=== PATIENT | female | born 1995 | race Caucasian/White ===

== ENCOUNTER 2017-07-02 22:59 | Emergency (ER) | payer BC ==
[2017-07-02] MEDS ORDERED: Acetaminophen/HYDROcodone 325-5 MG Tab PO ONE (23:10)
[2017-07-02] MEDS ORDERED: Penicillin V Potassium 250 MG Tab PO ONE (23:10)
[2017-07-02 23:11] VITALS: BP 134/83
--- NOTE | 2017-07-02 23:19 | EDM.PDOC ---
ED HPI GENERAL MEDICAL PROBLEM - General Chief Complaint: General Stated Complaint: TOOTH PAIN Time Seen by Provider: 07/02/17 23:05 Source of Information: Reports: Patient History Limitations: Reports: No Limitations - History of Present Illness INITIAL COMMENTS - FREE TEXT/NARRATIVE: 22 yo female with bad teeth presents with a toothache. Pain began a few days ago , got worse this morning, then eased off again until tonight. Has not yet called a dentist. No fever. Took OTC analgesia without relief. 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, NSAIDS Tooth/Teeth Pain Score (Numeric/FACES): 8 - Related Data Allergies Allergy/AdvReac Type Severity Reaction Status Date / Time No Known Allergies Allergy Verified 07/02/17 23:05 Home Meds: Home Meds Insulin Aspart [NovoLOG] 20 units SUBCUT TID 11/23/14 [History] Insulin Glarg,Human.Rec.Analog [Lantus] 50 units SUBCUT BEDTIME 11/23/14 [ History] Acetaminophen [Tylenol] 650 mg PO Q6HR PRN 03/25/15 [History] Ibuprofen [Advil] 600 mg PO Q6HR PRN 03/25/15 [History] Acetaminophen/HYDROcodone [[place] 325-5 MG] 1 - 2 tab PO Q6H PRN #14 tab [Rx] Penicillin V Potassium [IJD: Penicillin V Potassium] 500 mg PO .EVERY 6 HOURS # 30 tab 07/02/17 [Rx] Past Medical History - Past Health History Medical/Surgical History: Denies Medical/Surgical History [employer]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: Endocrine/Metabolic History: Reports: Diabetes, Type I - Past Surgical History Female Surgical History: Reports: Section Social & Family History - Tobacco Use Smoking Status *Q: Never Smoker Second Hand Smoke Exposure: No - Caffeine Use Caffeine Use: Reports: None - Alcohol Use Days Per Week of Alcohol Use: 0 - Recreational Drug Use Recreational Drug Use: No - Living Situation & Occupation Living situation: Reports: Occupation: Unemployed ED ROS GENERAL - Review of Systems Review Of Systems: See Below Constitutional: Reports: No Symptoms HEENT: Reports: Dental Pain Respiratory: Reports: No Symptoms Cardiovascular: Reports: No Symptoms GI/Abdominal: Reports: No Symptoms Skin: Reports: No Symptoms Neurological: Reports: No Symptoms ED EXAM, GENERAL - Physical Exam Exam: See Below Exam Limited By: No Limitations General Appearance: Alert, WD/WN, No Apparent Distress Eye Exam: Bilateral Eye: Normal Inspection Ears: Normal External Exam, Normal Canal, Hearing Grossly Normal Ear Exam: Bilateral Ear: Auricle Normal, Canal Normal Nose: Normal Inspection, Normal Mucosa Throat/Mouth: Normal Inspection, Normal Lips, Normal Oropharynx, Normal Voice, Other (painful tooth is a molar on the R mandible. This tooth is decay nearly to the gumline. Many other teeth are nearly this bad, very poor oral hygiene noted. ). No: Normal Teeth Respiratory/Chest: No Respiratory Distress, Lungs Clear, Normal Breath Sounds, No Accessory Muscle Use Course - Vital Signs Text/Narrative:: Sent home with take home packs of Pen VK and [place] as well as Rx for both. [place] Rx is for #14. Pen VK Rx is for 500 mg qid #30. Last Recorded V/S: Last Vital Signs Temp 36.7 C 07/02/17 23:08 Pulse 100 07/02/17 23:08 Resp 20 07/02/17 23:08 BP 134/83 07/02/17 23:08 Pulse Ox 98 07/02/17 23:08 Departure - Departure Time of Disposition: 23:19 Disposition: Home, Self-Care 01 Condition: Fair Clinical Impression: Pain due to dental caries - Discharge Information Prescriptions: Acetaminophen/HYDROcodone [[place] 325-5 MG] 1 - 2 tab PO Q6H PRN #14 tab PRN Reason: Pain Penicillin V Potassium [IJD: Penicillin V Potassium] 500 mg PO .EVERY 6 HOURS # 30 tab Referrals: Cal Ordonez MD [Primary Care Provider] - Forms: ED Department Discharge Additional Instructions: Take ibuprofen 400 mg every 6 hrs with food for pain relief. Take Penicillin every 6 hrs until gone. See your dentist yenny. Take acetaminophen or [place] for added relief as needed. If you can't get in to see your dentist in a timely manner, then follow up with your family doctor.
== END 2017-07-02 23:18 | disposition home or self-care (01) ==
LOC: FB.ED 22:59
DX: K02.9 Dental caries, unspecified (principal); E10.9 Type 1 diabetes mellitus without complications
CPT/HCPCS: 99283; A9270

== ENCOUNTER 2018-04-16 21:38 | Emergency (ER) | payer BC ==
[2018-04-16 23:38] VITALS: BP 124/88
== END 2018-04-16 23:10 | disposition left against medical advice (07) ==
LOC: FB.ED 21:38
DX: Z53.21 Procedure and treatment not carried out due to patient leaving prior to being seen by health care provider (principal)
CPT/HCPCS: 99282

== ENCOUNTER 2021-03-21 20:57 | Emergency (ER) | payer OTHER ==
--- NOTE | 2021-03-21 21:28 | EDM.PDOC ---
ED HPI GENERAL MEDICAL PROBLEM - General Stated Complaint: COVID SYMPTOMS Time Seen by Provider: 03/21/21 21:00 Source of Information: Reports: Patient History Limitations: Reports: No Limitations - History of Present Illness INITIAL COMMENTS - FREE TEXT/NARRATIVE: Patient presented to the ED because of cough, sore throat. She was exposed to her cousin who tested positive with Covid today. 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: Endocrine/Metabolic History: Reports: Diabetes, Type I - Past Surgical History GI Surgical History: Reports: Appendectomy Female Surgical History: Reports: Section Social & Family History - Family History Family Medical History: No Pertinent Family History - Caffeine Use Caffeine Use: Reports: Soda - Living Situation & Occupation Living situation: Reports: Occupation: Unemployed ED ROS GENERAL - Review of Systems Review Of Systems: See Below Constitutional: Reports: No Symptoms HEENT: Reports: No Symptoms Respiratory: Reports: Cough Cardiovascular: Reports: No Symptoms Endocrine: Reports: No Symptoms GI/Abdominal: Reports: No Symptoms : Reports: No Symptoms Musculoskeletal: Reports: No Symptoms Skin: Reports: No Symptoms Neurological: Reports: No Symptoms Psychiatric: Reports: No Symptoms ED EXAM, GENERAL - Physical Exam Exam: See Below Exam Limited By: No Limitations General Appearance: Alert, No Apparent Distress Ears: Normal External Exam, Normal Canal, Hearing Grossly Normal Nose: Normal Inspection, Normal Mucosa, No Blood Throat/Mouth: Normal Inspection, Normal Lips, Normal Teeth Head: Atraumatic, Normocephalic Neck: Normal Inspection, Supple, Non-Tender, Full Range of Motion Respiratory/Chest: No Respiratory Distress, Lungs Clear, Normal Breath Sounds, No Accessory Muscle Use Cardiovascular: Normal Peripheral Pulses, Regular Rate, Rhythm, No Edema, No Gallop, No JVD, No Murmur, No Rub GI/Abdominal: Normal Bowel Sounds, Soft, Non-Tender, No Organomegaly, No Distention, No Abnormal Bruit, No Mass, Pelvis Stable Back Exam: Normal Inspection, Full Range of Motion Extremities: Normal Inspection, Normal Range of Motion, Non-Tender, No Pedal Edema, Normal Capillary Refill Neurological: Alert, Oriented, CN II-XII Intact, Normal Cognition, Normal Gait Course - Vital Signs Text/Narrative:: Covid test-pending Last Recorded V/S: Last Vital Signs Temp 36.2 C 03/21/21 21:00 Pulse 105 H 03/21/21 21:00 Resp 16 03/21/21 21:00 BP 154/87 H 03/21/21 21:00 Pulse Ox 99 03/21/21 21:00 - Orders/Labs/Meds Orders: Active Orders 24 hr Category Date Time Status CORONAVIRUS (COVID19) [facility] Routine Lab 03/21/21 21:30 Received Departure - Departure Time of Disposition: 21:50 Disposition: Home, Self-Care 01 Condition: Good Clinical Impression: Exposure to COVID-19 virus - Discharge Information Instructions: 3 [place] Steps to Take While Waiting for Your COVID-19 Test Result - CDC Referrals: Cal Ordonez MD [Primary Care Provider] - Forms: ED Department Discharge Additional Instructions: Please read discharge instructions on Covid exposure and testing while waiting for your result We will call you as soon as we get the result - My Orders Last 24 Hours: My Active Orders 03/21/21 21:30 CORONAVIRUS (COVID19) [facility] Routine - Assessment/Plan Last 24 Hours: My Active Orders 03/21/21 21:30 CORONAVIRUS (COVID19) [facility] Routine
[2021-03-21 21:54] VITALS: BP 154/87; PULSE 105
[2021-03-23 18:42] LABS: CORNONAVIRUS (COVID19) CSH-NRL Negative (Negative)
== END 2021-03-21 21:27 | disposition home or self-care (01) ==
LOC: FB.ED 20:57
DX: Z20.822 Contact with and (suspected) exposure to COVID-19 (principal); E10.9 Type 1 diabetes mellitus without complications
CPT/HCPCS: 99283; U0003

== ENCOUNTER 2024-04-08 21:43 | Emergency (ER) | payer OTHER ==
[2024-04-08 22:24] LABS: HEMOGLOBIN 11.1 g/dL (11.4-15.5)
[2024-04-08 22:27] LABS: BASOPHILS ABSOLUTE AUTO 0.1 x10-3/uL (0.0-0.1); BASOPHILS PERCENT AUTO 1.6 % (0.2-1.5); EOSINOPHILS ABSOLUTE AUTO 0.3 x10-3/uL (0.0-0.8); HEMATOCRIT 34.4 % (34.2-48.2); LYMPHOCYTES ABSOLUTE AUTO 1.5 x10-3/uL (1.0-4.4); LYMPHOCYTES PERCENT AUTO 17.1 % (18.4-52.1); MEAN CORPUSCULAR HEMOGLOBIN 28.7 pg (23.9-33.9); MEAN CORPUSCULAR HGB CONC 32.3 g/dL (31.9-34.8); MEAN CORPUSCULAR VOLUME 88.8 fL (76.7-100.5); MONOCYTES ABSOLUTE AUTO 0.3 x10-3/uL (0.3-1.0); MONOCYTES PERCENT AUTO 3.7 % (4.4-15.7); NEUTROPHILS ABSOLUTE AUTO 6.6 x10-3/uL (1.5-6.3); NEUTROPHILS PERCENT AUTO 74.6 % (30.8-76.2); PLATELET COUNT,PLT 420 x10(3)uL (151-488); RED BLOOD CELL COUNT 3.88 x10(6)uL (3.60-5.20); WHITE BLOOD CELL COUNT,WBC 8.9 x10-3/uL (3.0-10.3)
[2024-04-08 22:33] LABS: A/G RATIO 0.8; ALANINE AMINOTRANSFERASE,ALT 33 U/L (12-36); ALBUMIN 3.7 g/dL (3.5-5.2); ALKALINE PHOSPHATASE 148 IU/L (56-112); ASPARTATE AMNIOTRANSFERASE,AST 30 IU/L (5-25); BILIRUBIN TOTAL 0.5 mg/dL (0.1-1.3); BLOOD UREA NITROGEN,BUN 25 mg/dL (7-18); CALCIUM 9.5 mg/dL (8.6-10.2); CARBON DIOXIDE,CO2 26 mmol/L (21-32); CHLORIDE,CL 95 mmol/L (100-110); ESTIMATED GFR 9 mL/min (>60); GLUCOSE RANDOM 225 mg/dL (80-116); POTASSIUM,K 5.8 mmol/L (3.5-5.3); PROTEIN TOTAL,TP 8.5 g/dL (6.0-8.0); SODIUM,NA 133 mmol/L (135-145)
[2024-04-08] MEDS: Ondansetron 4 MG/2 ML SDV IVPUSH ONE (22:34)
[2024-04-08] MEDS: Labetalol 20 MG/4 ML Syringe IVPUSH ONE (22:39)
[2024-04-08 22:40] LABS: TROPONIN I 19.2 pg/mL (4.0-60.3)
[2024-04-08 22:44] LABS: CREATININE 6.3 mg/dL (0.55-1.02); PRO B-TYPE NATRIUR PEPT,BNPPRO > 35000 pg/mL (<=125)
[2024-04-08] MEDS: hydrALAZINE 20 MG/ML SDV IVPUSH ONE (23:23)
[2024-04-08] MEDS: Prochlorperazine 10 MG/2 ML SDV IVPUSH ONE (23:23)
[2024-04-08] MEDS: amLODIPine 10 MG Tab PO STA (23:23)
[2024-04-09 00:11] VITALS: BP 209/102; PULSE 84
== END 2024-04-09 00:47 | disposition home or self-care (01) ==
LOC: FB.ED 21:43
DX: I16.9 Hypertensive crisis, unspecified (principal); E10.22 Type 1 diabetes mellitus with diabetic chronic kidney disease; N18.6 End stage renal disease; E87.5 Hyperkalemia; Z99.2 Dependence on renal dialysis; Z79.4 Long term (current) use of insulin; Z90.49 Acquired absence of other specified parts of digestive tract
CPT/HCPCS: 36415; 71045; 80053; 83880; 84484; 85025; 85379; 93005; 93010; 96374; 96375; 99284; 99285-25; A9270-GY; J0360; J0780; J1920; J2405

== ENCOUNTER 2024-05-27 20:32 | Emergency (ER) | payer OTHER ==
[2024-05-27] MEDS: Prochlorperazine 10 MG/2 ML SDV IM ONE (21:23)
[2024-05-27] MEDS: diphenhydrAMINE 50 MG/ML SDV IM ONE (21:23)
[2024-05-27] MEDS: LORazepam 1 MG Tab PO ONE (21:24)
[2024-05-27] MEDS: LORazepam 2 MG/ML SDV IM ONE (21:30)
[2024-05-27 22:34] VITALS: BP 164/76; PULSE 89
== END 2024-05-27 22:10 | disposition home or self-care (01) ==
LOC: FB.ED 20:32
DX: I13.2 Hypertensive heart and chronic kidney disease with heart failure and with stage 5 chronic kidney disease, or end stage renal disease (principal); I50.9 Heart failure, unspecified; N18.6 End stage renal disease; E10.22 Type 1 diabetes mellitus with diabetic chronic kidney disease; Z88.8 Allergy status to other drugs, medicaments and biological substances; Z79.4 Long term (current) use of insulin; Z79.82 Long term (current) use of aspirin; Z79.899 Other long term (current) drug therapy; Z99.2 Dependence on renal dialysis; Z86.16 Personal history of COVID-19
CPT/HCPCS: 96372; 99283; J0780; J2060

== ENCOUNTER 2024-07-30 17:50 | Emergency (ER) | payer OTHER ==
[2024-07-30] MEDS ORDERED: Prochlorperazine 5 MG Tab PO ONE (17:51)
[2024-07-30 18:18] VITALS: BP 145/92; PULSE 106
[2024-07-30] MEDS: traMADol 50 MG Tab PO ONE (18:54)
[2024-07-30] MEDS: Prochlorperazine 10 MG/2 ML SDV IM ONE (18:54)
[2024-07-30 19:12] LABS: HEMOGLOBIN 10.4 g/dL (11.4-15.5); MEAN CORPUSCULAR HEMOGLOBIN 29.7 pg (23.9-33.9); MEAN CORPUSCULAR HGB CONC 33.4 g/dL (31.9-34.8); MEAN CORPUSCULAR VOLUME 88.9 fL (76.7-100.5); MEAN PLATELET VOLUME 7.2 fL (7.1-12.4); PLATELET COUNT,PLT 282 x10(3)uL (151-488); RED BLOOD CELL COUNT 3.49 x10(6)uL (3.60-5.20); RED CELL DISTRIBUTION WIDTH 16.9 % (12.3-16.5); WHITE BLOOD CELL COUNT,WBC 15.5 x10-3/uL (3.0-10.3)
[2024-07-30 19:22] LABS: A/G RATIO 0.5; ALANINE AMINOTRANSFERASE,ALT 56 U/L (12-36); ALBUMIN 2.8 g/dL (3.5-5.2); ALKALINE PHOSPHATASE 177 IU/L (56-112); ASPARTATE AMNIOTRANSFERASE,AST 24 IU/L (5-25); BILIRUBIN TOTAL 0.4 mg/dL (0.1-1.3); BLOOD UREA NITROGEN,BUN 60 mg/dL (7-18); CALCIUM 10.7 mg/dL (8.6-10.2); CARBON DIOXIDE,CO2 27 mmol/L (21-32); EST CRCL DRUG DOSING (CG) 6.72 mL/min; ESTIMATED GFR 4 mL/min (>60); GLUCOSE RANDOM 208 mg/dL (80-116); POTASSIUM,K 4.2 mmol/L (3.5-5.3); SODIUM,NA 128 mmol/L (135-145)
[2024-07-30 19:30] LABS: CHLORIDE,CL 88 mmol/L (100-110)
[2024-07-30 19:31] LABS: CREATININE 11.9 mg/dL (0.55-1.02)
[2024-07-30 19:32] LABS: BAND PERCENT MAN 2 % (0-6); EOSINOPHILS PERCENT MAN 2 % (0-5); LYMPHOCYTES PERCENT MAN 11 % (13-37); MONOCYTES PERCENT MAN 7 % (4-12); SEG NEUTROPHILS PERCENT MAN 78 % (46-82)
== END 2024-07-30 20:17 | disposition home or self-care (01) ==
LOC: FB.ED 17:50
DX: T81.41XA Infection following a procedure, superficial incisional surgical site, initial encounter (principal); L03.115 Cellulitis of right lower limb; I13.2 Hypertensive heart and chronic kidney disease with heart failure and with stage 5 chronic kidney disease, or end stage renal disease; I50.9 Heart failure, unspecified; N18.6 End stage renal disease; E10.22 Type 1 diabetes mellitus with diabetic chronic kidney disease; E66.9 Obesity, unspecified; Z86.16 Personal history of COVID-19; Z99.2 Dependence on renal dialysis; Z90.49 Acquired absence of other specified parts of digestive tract; Z79.4 Long term (current) use of insulin; Z79.82 Long term (current) use of aspirin; Z79.899 Other long term (current) drug therapy; Z88.1 Allergy status to other antibiotic agents; Z88.8 Allergy status to other drugs, medicaments and biological substances; Z68.34 Body mass index [BMI] 34.0-34.9, adult
CPT/HCPCS: 36415; 80053; 83605; 83735; 85025; 86140; 87070; 87205; 96372; 99284; A9270; J0780; Q0164; 87077; 87186

== ENCOUNTER 2024-08-27 15:03 | Emergency (ER) | payer SELFPAY ==
[2024-08-27 15:47] LABS: HEMATOCRIT 34.3 % (34.2-48.2); HEMOGLOBIN 11.4 g/dL (11.4-15.5); MEAN CORPUSCULAR HEMOGLOBIN 31.2 pg (23.9-33.9); MEAN CORPUSCULAR HGB CONC 33.1 g/dL (31.9-34.8); MEAN CORPUSCULAR VOLUME 94.3 fL (76.7-100.5); MEAN PLATELET VOLUME 7.4 fL (7.1-12.4); PLATELET COUNT,PLT 322 x10(3)uL (151-488); RED BLOOD CELL COUNT 3.64 x10(6)uL (3.60-5.20); RED CELL DISTRIBUTION WIDTH 19.1 % (12.3-16.5); WHITE BLOOD CELL COUNT,WBC 14.3 x10-3/uL (3.0-10.3)
[2024-08-27 15:54] LABS: A/G RATIO 0.6; ALANINE AMINOTRANSFERASE,ALT 20 U/L (12-36); ALBUMIN 2.9 g/dL (3.5-5.2); ALKALINE PHOSPHATASE 222 IU/L (56-112); ASPARTATE AMNIOTRANSFERASE,AST 11 IU/L (5-25); BILIRUBIN TOTAL 0.3 mg/dL (0.1-1.3); BLOOD UREA NITROGEN,BUN 44 mg/dL (7-18); BUN/CREATININE RATIO 3.8 (9-20); CALCIUM 9.4 mg/dL (8.6-10.2); CARBON DIOXIDE,CO2 24 mmol/L (21-32); CHLORIDE,CL 90 mmol/L (100-110); EST CRCL DRUG DOSING (CG) 6.84 mL/min; ESTIMATED GFR 4 mL/min (>60); GLUCOSE RANDOM 201 mg/dL (80-116); POTASSIUM,K 3.7 mmol/L (3.5-5.3); PROTEIN TOTAL,TP 8.1 g/dL (6.0-8.0); SODIUM,NA 132 mmol/L (135-145)
[2024-08-27 16:08] LABS: CREATININE 11.7 mg/dL (0.55-1.02)
[2024-08-27 16:40] LABS: BAND PERCENT MAN 1 % (0-6); EOSINOPHILS PERCENT MAN 4 % (0-5); LYMPHOCYTES PERCENT MAN 26 % (13-37); MONOCYTES PERCENT MAN 7 % (4-12); SEG NEUTROPHILS PERCENT MAN 62 % (46-82)
[2024-08-27 16:45] VITALS: BP 90/60; PULSE 95
== END 2024-08-27 16:35 | disposition home or self-care (01) ==
LOC: FB.ED 15:03
DX: R06.02 Shortness of breath (principal); I11.0 Hypertensive heart disease with heart failure; I50.9 Heart failure, unspecified; E10.9 Type 1 diabetes mellitus without complications; E66.9 Obesity, unspecified; Z90.49 Acquired absence of other specified parts of digestive tract; Z86.16 Personal history of COVID-19; Z79.82 Long term (current) use of aspirin; Z79.899 Other long term (current) drug therapy; Z79.4 Long term (current) use of insulin; Z88.1 Allergy status to other antibiotic agents; Z88.8 Allergy status to other drugs, medicaments and biological substances
CPT/HCPCS: 36415; 71046; 80053; 83880; 85025; 99285

== ENCOUNTER 2025-01-27 20:16 | Emergency (ER) | payer OTHER ==
[2025-01-27] MEDS ORDERED: Acetaminophen/oxyCODONE 325-5 MG Tab PO ONE (20:17)
[2025-01-27 20:56] VITALS: BP 148/91
[2025-01-27] MEDS: Famotidine 20 MG Tab PO ONE (21:18)
[2025-01-27] MEDS: Promethazine 25 MG/ML SDV IM ONE (21:19)
[2025-01-27] MEDS: HYDROmorphone 2 MG/ML SDV IM ONE (21:19)
[2025-01-27 22:24] VITALS: PULSE 91
== END 2025-01-27 22:02 | disposition home or self-care (01) ==
LOC: FB.ED 20:16
DX: R21 Rash and other nonspecific skin eruption (principal); R20.8 Other disturbances of skin sensation; I11.0 Hypertensive heart disease with heart failure; I50.9 Heart failure, unspecified; E10.9 Type 1 diabetes mellitus without complications; Z86.16 Personal history of COVID-19; Z88.1 Allergy status to other antibiotic agents; Z88.8 Allergy status to other drugs, medicaments and biological substances; Z79.4 Long term (current) use of insulin; Z79.899 Other long term (current) drug therapy
CPT/HCPCS: 96372; 99282; 99283; A9270-GY; J1171; J2550

== ENCOUNTER 2025-02-17 20:33 | Emergency (ER) | payer OTHER ==
[2025-02-17] MEDS ORDERED: Acetaminophen/oxyCODONE 325-5 MG Tab PO ONE (20:34)
[2025-02-17] MEDS ORDERED: oxyCODONE 5 MG Tab PO ONE (20:53)
[2025-02-17 21:00] VITALS: BP 206/106; PULSE 87
== END 2025-02-17 21:17 | disposition home or self-care (01) ==
LOC: FB.ED 20:33
DX: E10.621 Type 1 diabetes mellitus with foot ulcer (principal); L97.429 Non-pressure chronic ulcer of left heel and midfoot with unspecified severity; I11.0 Hypertensive heart disease with heart failure; I50.9 Heart failure, unspecified; E66.9 Obesity, unspecified; Z88.8 Allergy status to other drugs, medicaments and biological substances; Z79.899 Other long term (current) drug therapy; Z79.4 Long term (current) use of insulin; Z79.82 Long term (current) use of aspirin; Z86.16 Personal history of COVID-19; Z90.49 Acquired absence of other specified parts of digestive tract
CPT/HCPCS: 99283; A9270-GY